=== PATIENT | female | born 1955 | race Caucasian/White ===

== ENCOUNTER 2017-11-10 14:03 | Emergency (ER) | payer MEDICARE, BC, OTHER ==
[~2017-11-10] VITALS: Ht 162.6 cm; Wt 60.8 kg
--- OUTSIDE RECORDS SUMMARY | ~2017-11-10 | XMS | Encounter Summary ---
Demographics + + + | Address | [address] | | | [address] | | | [place] [address] | + + + | Home Phone | | + + + | Preferred Language | Unknown | + + + | Marital Status | Single | + + + | Worship Affiliation | 1041 | + + + | Race | Unknown | + + + | Ethnic Group | Unknown | + + + Author + + + | Author | [facility] [employer] [facility] | + + + | Organization | [facility] [facility] | + + + | Address | Unknown | + + + | Phone | Unavailable | + + + Support + + + + + | Name | Relationship | Address | Phone | + + + + + | Precious La | ECON | [place] | | | | | [address] | | + + + + + Care Team Providers + +------+ + | Care Room Attendant Name | Role | Phone | + +------+ + PCP | Unavailable | + +------+ + Encounter Details +--------+ + + + + | Date | Type | Department | Care Team | Description | +--------+ + + + + | 08/21/ | Telephone | Juan | Celina Lang, | | | 2017 | | [facility] | OPERATIONS EXPERT | | | | | [address] | | | | | | [place] | | | | | | [address] | | | | | | [phone] | | | +--------+ + + + + Social History + +-------+ +--------+ + | Tobacco Use | Types | Packs/Day | Years | Date | | | | | Used | | + +-------+ +--------+ + | Former Smoker | | | 10 | Quit: 06/19/2012 | + +-------+ +--------+ + + +---+---+---+ | Smokeless Tobacco: | | | | | Never Used | | | | + +---+---+---+ + + +---------+ + | Alcohol Use | Drinks/We | oz/Week | Comments | | | ek | | | + + +---------+ + | No | | | | + + +---------+ + + + + | Sex Assigned at | Date Recorded | | | | + + + | Not on file | | + + + as of this encounter Plan of Treatment +--------+---------+ + + + | Date | Type | Specialty | Care Team | Description | +--------+---------+ + + + | 12/10/ | Office | Orthopedic Surgery | Cecelia Perez | | | 2017 | Visit | | [address] | | | | | | [place] | | | | | | [place] [address] | | | | | | [phone] | | | | | | | | +--------+---------+ + + + as of this encounter Visit Diagnoses Not on filein this encounter"
--- OUTSIDE RECORDS SUMMARY | ~2017-11-10 | XMS | Encounter Summary ---
Demographics + + + | Address | [address] | | | [address] | | | [place] [address] | + + + | Home Phone | | + + + | Preferred Language | Unknown | + + + | Marital Status | Single | + + + | Advent Affiliation | 1041 | + + + | Race | Unknown | + + + | Ethnic Group | Unknown | + + + Author + + + | Author | [facility] [facility] | + + + | Organization | [facility] | + + + | Address | Unknown | + + + | Phone | Unavailable | + + + Support + + + + + | Name | Relationship | Address | Phone | + + + + + | Precious La | ECON | [place] | | | | | [address] | | + + + + + Care Team Providers + +------+ + | Care Senior Software Architect Name | Role | Phone | + +------+ + PCP | Unavailable | + +------+ + Reason for Visit + + + | Reason | Comments | + + + | Follow-up | Increased lumbar pain. Pain level today is a 9/10. | + + + Consult and Treat (Routine) + +--------+ + + + + | Status | Reason | Specialty | Diagnoses / | Referred By | Referred To | | | | | Procedures | Contact | Contact | + +--------+ + + + + | Authorized | | Orthopedic | Diagnoses | Self, | Ang, | | | | Surgery | Lumbar | Referred | Cecelia | | | | | | Phone: | [address] | | | | | | [phone] | [address] | | | | | | Fax: | [address] | | | | | | [phone] | [place], [place] | | | | | | | [address] Phone: | | | | | | | [phone] | | | | | | | Fax: | | | | | | | [phone] | + +--------+ + + + + Encounter Details +--------+---------+ + + + | Date | Type | Department | Care Team | Description | +--------+---------+ + + + | 08/21/ | Office | [facility] | Cecelia Perez | Spinal stenosis of | | 2018 | Visit | [facility] | [address] | lumbar region with | | | | [address] | [place] | neurogenic | | | | [place], [place] | [place] [address] | claudication | | | | [address] | [phone] | (Primary Dx); DDD | | | | [phone] | | (degenerative disc | | | | | | disease), lumbar; | | | | | | Pain of lumbar | | | | | | spine; Pain of | | | | | | cervical spine; | | | | | | Cervical | | | | | | radiculopathy; Long | | | | | | term prescription | | | | | | opiate use | +--------+---------+ + + + Social History + +-------+ [...] + + + as of this encounter Last Filed Vital Signs + + + + | Vital Sign | Reading | Time Taken | + + + + | Blood Pressure | - | - | + + + + | Pulse | - | - | + + + + | Temperature | - | - | + + + + | Respiratory Rate | - | - | + + + + | Oxygen Saturation | - | - | + + + + | Inhaled Oxygen | - | - | | Concentration | | | + + + + | Weight | 60.8 kg (134 lb) | 08/21/2017 11:16 AM PST | + + + + | Height | 162.6 cm (5' 4") | 08/21/2017 11:16 AM PST | + + + + | Body Mass Index | 23 | 08/21/2017 11:16 AM PST | + + + + in this encounter Instructions Patient Instructions - Cecelia Perez ARNP - 08/21/2017 11:00 AM PST1. Take medicat ions as prescribed 2. Call for any changes to your symptoms 3. There will be no early refills provided on the medications provided to you today 4. Continue to have an active lifestyle, be reminded of your proper body mechanics and res trictions to avoid any exacerbation of symptoms. 5. Ice/heat therapy as indicated in this encounter Progress Notes Cecelia Perez ARNP - 08/21/2017 11:00 AM PSTFormatting of this note may be differen t from the original. Subjective: Chief Complaint: Lumbar pain Patient ID: Humera Benavidez is a 62 y.o. female who returns to the clinic today for her bim onthly management of her lumbar pain. Patient, by history, underwent an L4-5 fusion in 2012. Patient currently has a multilevel disc desiccation from L1-S1, all contributing to her cur rent symptoms. Patient reports an increase to her pain symptoms since her last clinic visit secondary to the colder weather. Patient continues to report of baseline pain level 8 9/10 on pain scale; describing her pain as a deep, aching, throbbing sensation at the lumbar reg ion and lower extremity; aggravated with changing position; improved with rest, use of opioi d medicine down to 6/10 on pain scale. Patient denies any bladder or bowel dysfunction assoc iated with her symptoms. [place] [facility] prescription monitoring website reviewed showing no anomalies t o prescribed medications. Review of Systems Constitutional: Negative for chills and fever. HENT: Negative for ear pain. Eyes: Negative for pain. Respiratory: Negative for choking, shortness of breath and wheezing. Cardiovascular: Negative for leg swelling. Gastrointestinal: Negative for abdominal pain. Endocrine: Negative for cold intolerance and heat intolerance. Genitourinary: Negative for dysuria, frequency and urgency. Musculoskeletal: Positive for myalgias. Skin: Negative for rash. Neurological: Negative for dizziness. Psychiatric/Behavioral: Positive for sleep disturbance (Insomnia). Negative for confusion. Social History Social History Marital status: Single Spouse name: N/A Number of children: N/A Years of education: N/A Occupational History Not on file. Social History Main Topics Smoking status: Former Smoker Years: 10.00 Quit date: 06/19/2012 Smokeless tobacco: Never Used Alcohol use No Drug use: Yes Frequency: 2.0 times per week Types: Marijuana Sexual activity: Not on file Other Topics Concern Not on file Social History Narrative No narrative on file Past Surgical History Procedure Laterality Date ABDOMINAL SURGERY APPENDECTOMY CEREBRAL ANEURYSM REPAIR 1992 CEREBRAL ANEURYSM REPAIR clips inplace MRI compatability unknown CEREBRAL ANEURYSM REPAIR Pt. states that Dr. 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" MRSA (methicillin resistant Staphylococcus aureus) Other chronic pain Radiculopathy 07/07/2012 Patient Active Problem List Diagnosis Pain of lumbar spine Radiculopathy Facial pain, atypical History of MRSA infection DDD (degenerative disc disease), lumbar Lumbar stenosis Left ankle injury Pain of cervical spine Current Outpatient Prescriptions: Cane (medical collector), Dispense and provide instruction as needed., Disp: 1 each, Rfl: 0 diazePAM (VALIUM) 5 MG tablet, Take 1 tablet by mouth nightly as needed for Anxiety or Muscle spasms., Disp: 30 tablet, Rfl: 1 oxyCODONE (ROXICODONE) 15 MG immediate release tablet, Take 1 tablet by mouth every 6 (six) hours as needed for Pain., Disp: 120 tablet, Rfl: 0 [START ON 09/18/2017] oxyCODONE (ROXICODONE) 15 MG immediate release tablet, Take 1 tab let by mouth every 6 (six) hours as needed for Pain., Disp: 120 tablet, Rfl: 0 pregabalin (LYRICA) 75 MG capsule, Take 1 capsule q.AM, and then 3 capsules at bedtime ., Disp: 120 capsule, Rfl: 5 Allergies Allergen Reactions Inderal [Propranolol Hcl] Hives Iodinated Diagnostic Agents Hives Contrast dye Medrol [Methylprednisolone] Shortness of Breath Sulfamethoxazole-Trimethoprim Other (See Comments) Augmentin [Amoxicillin-Pot Clavulanate] Diarrhea Codeine Nausea and Vomiting Objective: Ht 1.626 m (5' 4") | Wt 60.8 kg (134 lb) | BMI 23.00 kg/m Physical Exam General: Well nourished, well developed female Skin: WNL HEENT: NC/AT Respiratory: Normal excursion Cervical: Tenderness to palpation midline facets with mild limitation to range of motion; positive Spurling sign R>L; negative Leonel sign bilaterally Lumbar: Tenderness to palpation throughout midline facet, paraspinal muscle spasms, negati ve sitting straight leg raise bilaterally; forward biased gait Motor: 5/5 bilateral lower extremities; 5-/5 right scientific informatics analyst, tricep; 5/5 to the rest of the bi lateral upper extremities; negative Phalen and Tinel sign bilaterally Sensory: Intact all dermatomes to the bilateral lower extremities Assessment and Plan: 1. Spinal stenosis of lumbar region with neurogenic claudication 2. DDD (degenerative disc disease), lumbar 3. Pain of lumbar spine 4. Pain of cervical spine 5. Cervical radiculopathy 6. [facility] prescription opiate use Medications Placed This Encounter Medications oxyCODONE (ROXICODONE) 15 MG immediate release tablet Sig: Take 1 tablet by mouth every 6 (six) hours as needed for Pain. Dispense: 120 tablet Refill: 0 oxyCODONE (ROXICODONE) 15 MG immediate release tablet Sig: Take 1 tablet by mouth every 6 (six) hours as needed for Pain. Dispense: 120 tablet Refill: 0 TO BE FILLED NO EARLIER THAN SEPTEMBER 18, 2017 diazePAM (VALIUM) 5 MG tablet Sig: Take 1 tablet by mouth nightly as needed for Anxiety or Muscle spasms. Dispense: 30 tablet Refill: 1 Orders Placed This Encounter Procedures Pain management 10 GARIBAY ON OXYCODONE AND DIAZEPAM Standing Status: Future Standing Expiration Date: 08/21/2018 Humera Benavidez's current medication regimen has been moderately sufficient in keeping sergio ent's symptoms down to a more manageable level. Routine drug UA screen ordered today. Patient is provided a refill of her Oxycodone 15 mg every 6 hours as needed for pain; suppl emented with the Diazepam 5 mg at bedtime as needed for anxiety or muscle spasms. Two presc riptions of these medications were provided. First prescription may be filled today with a s econd prescription to be filled no earlier than September 18, 2017. Proper administration of the medications as well as potential side effects have been discussed. Emphasis has been mad e not to consume these 2 medications at the same time, must be at least 2 hours apart. Patient is encouraged to continue with her activity level reminding patient, however, of he r activity restrictions and proper body mechanics to avoid any exacerbation of symptoms. Ic e and/or heat therapy as indicated. Barring any changes, we will follow up with the patient in 2 months for a status update or sooner as indicated. All questions and concerns with regards to the patient's condition wer e discussed and answered and patient verbalized understanding and has agreed with treatment plan. LASHAY Simmons has created this entry using Flattr Voice Recognition software an [employer]. The entry has been reviewed and there may still exist sound alike word erro rs. in this encounter Plan of Treatment +--------+---------+ + + + | Date | Type | Specialty | Care Team | Description | +--------+---------+ + + + | 12/10/ | Office | Orthopedic Surgery | Cecelia Perez | | | 2017 | Visit | | [address] | | | | | | [address] | | | | | | [place] [address] | | | | | | [phone] | | | | | | | | +--------+---------+ + + + as of this encounter Results Pain management 10 GARIBAY (10/16/2017 10:58 AM) + + +-------- ---+ | Component | Value | Ref Ran ge | + + +-------- ---+ | PRESCRIBED DRUG 1 | SEE BELOWComment: NO MEDICATION LIST | | | | PROVIDEDCORRECTED ON 10/17 AT 0435: | | | | PREVIOUSLY REPORTED DNR DNR | | | |CORRECTED ON 10/17 AT 0435: PREVIOUSLY REPORTED DNR DNR | | | | | | + + +-------- ---+ | ALCOHOL SCREEN | NEGATIVEComment: POSITIVE CUTOFF 20 MG/DL | mg/dL | + + +-------- ---+ | AMP METHAMPHETAMINE | NEGATIVEComment: POSITIVE CUTOFF 500 NG/ML | ng/mL | | SCREEN | | | + + +-------- ---+ | AMPHETAMINE SCREEN | NEGATIVEComment: POSITIVE CUTOFF 500 NG/ML | ng/mL | | URINE | | | + + +-------- ---+ | CANNABINOIDS SCREEN | POSITIVEComment: POSITIVE CUTOFF 20 NG/ML | ng/mL | + + +-------- ---+ | CARBOXY THC GC MS | 53.4Comment: PRESCRIPTION MEDICATION NOT | ng/mL | | | PROVIDED FOR INTERPRETIVE COMMENT.PRESENCE | | | | OF CANNABINOIDS INDICATES CONSUMPTION OF | | | | MARIJUANA EITHERTHROUGH ILLICIT SOURCES | | | | LIKE POT, HASHISH, HASH OIL OR | | | | THROUGHPRESCRIPTION SOURCES LIKE MARINOL. | | | | THIS TEST CANNOT DISTINGUISHBETWEEN AN | | | | ILLICIT SOURCE OF MARIJUANA AND THE | | | | PRESCRIPTION MARINOL.POSITIVE CUTOFF 10 | | | | NG/MLTHIS TEST WAS DEVELOPED AND ITS | | | | PERFORMANCE CHARACTERISTICS DETERMINEDBY | | | | [facility]. THE U.S. FOOD AND DRUG ADMINISTRATION | | | | (FDA) HAS NOT APPROVEDOR CLEARED THIS | | | | TEST. HOWEVER, FDA APPROVAL OR CLEARANCE IS | | | | CURRENTLYNOT REQUIRED FOR CLINICAL USE OF | | | | THIS TEST.THE RESULTS ARE NOT INTENDED TO | | | | BE USED THE SOLE MEANS FOR | | | | CLINICALDIAGNOSIS OR PATIENT MANAGEMENT | | | | DECISIONS. [facility] IS AUTHORIZED UNDERCLINICAL | | | | LABORATORY IMPROVEMENT AMENDMENTS (CLIA) | | | | TO PERFORMHIGH-COMPLEXITY TESTING. | | + + +-------- ---+ | COCAINE SCREEN | NEGATIVEComment: POSITIVE CUTOFF 150 NG/ML | ng/mL | + + +-------- ---+ | MORPHINE LC MS MS | NEGATIVEComment: LOQ: 50 NG/ML | ng/mL | + + +-------- ---+ | OXYMORPHONE LC MS MS | >3000Comment: PRESCRIPTION MEDICATION NOT | ng/mL | | | PROVIDED FOR INTERPRETIVE COMMENT.PRESENCE | | | | OF OXYMORPHONE INDICATES THE CONSUMPTION OF | | | | NUMORPHAN, OPANA,OPANA ER, OR ANY | | | | MEDICATION CONTAINING OXYMORPHONE. | | | | OXYMORPHONE CANALSO BE PRESENT A | | | | METABOLITE OF OXYCODONE.LOQ: 50 NG/ML | | | | | | + + +-------- ---+ | HYDROMORPHONE LC MS | NEGATIVEComment: LOQ: 50 NG/ML | ng/mL | | MS | | | + + +-------- ---+ | NOR OXYCODONE LC MS | >3000Comment: PRESCRIPTION MEDICATION NOT | ng/mL | | MS | PROVIDED FOR INTERPRETIVE COMMENT.PRESENCE | | | | OF NOR-OXYCODONE INDICATES THE CONSUMPTION | | | | OF COMBUNOX,ENDOCET, PERCOCET, PERCODAN, | | | | OXYCONTIN, ROXICET, TYLOX OR ANYMEDICATION | | | | CONTAINING OXYCODONE.LOQ: 50 NG/MLTHIS TEST | | | | WAS DEVELOPED AND ITS PERFORMANCE | | | | CHARACTERISTICS DETERMINEDBY [facility]. THE U.S. | | | | FOOD AND DRUG ADMINISTRATION (FDA) HAS NOT | | | | APPROVEDOR CLEARED THIS TEST. HOWEVER, FDA | | | | APPROVAL OR CLEARANCE IS CURRENTLYNOT | | | | REQUIRED FOR CLINICAL USE OF THIS TEST.THE | | | | RESULTS ARE NOT INTENDED TO BE USED THE | | | | SOLE MEANS FOR CLINICALDIAGNOSIS OR PATIENT | | | | MANAGEMENT DECISIONS. [facility] IS AUTHORIZED | | | | UNDERCLINICAL LABORATORY IMPROVEMENT | | | | AMENDMENTS (CLIA) TO PERFORMHIGH-COMPLEXITY | | | | TESTING. | | + + +-------- ---+ | NOR HYDROCODONE LC | NEGATIVEComment: LOQ: 50 NG/ML | ng/mL | | MS | | | + + +-------- ---+ | OXYCODONE LC MS MS | >3000Comment: PRESCRIPTION MEDICATION NOT | ng/mL | | | PROVIDED FOR INTERPRETIVE COMMENT.PRESENCE | | | | OF OXYCODONE INDICATES THE CONSUMPTION OF | | | | COMBUNOX, ENDOCET,PERCOCET, PERCODAN, | | | | OXYCONTIN, ROXICET, TYLOX OR ANY | | | | MEDICATIONCONTAINING OXYCODONE.LOQ: 50 | | | | NG/ML | | | | | | + + +-------- ---+ | CODEINE LC MS MS | NEGATIVEComment: LOQ: 50 NG/ML | ng/mL | + + +-------- ---+ | HEROIN METLAB LC MS | NEGATIVEComment: LOQ: 10 NG/ML | ng/mL | | MS | | | + + +-------- ---+ | HYDRCODONE LC MS MS | NEGATIVEComment: LOQ: 50 NG/ML | ng/mL | + + +-------- ---+ | PHENCYCLIDINE SCR | NEGATIVEComment: POSITIVE CUTOFF 25 NG/ML | ng/mL | + + +-------- ---+ | PROPOXYPHENE SCRreen | NEGATIVEComment: POSITIVE CUTOFF 300 NG/ML | ng/mL | + + +-------- ---+ | BARBITURATES SCR | NEGATIVEComment: POSITIVE CUTOFF 200 NG/ML | ng/mL | + + +-------- ---+ | BENZODIAZEPINES | POSITIVEComment: POSITIVE CUTOFF 200 NG/ML | ng/mL | + + +-------- ---+ | OXAZEPAM GC MS | 47.7Comment: PRESCRIPTION MEDICATION NOT | ng/mL | | | PROVIDED FOR INTERPRETIVE COMMENT.PRESENCE | | | | OF OXAZEPAM A PARENT COMPOUND OR | | | | METABOLITE INDICATES THECONSUMPTION OF ONE | | | | OF THE FOLLOWING: CHLORDIAZEPOXIDE, | | | | CLORAZEPATE,DIAZEPAM, OXAZEPAM, PRAZEPAM, | | | | TEMAZEPAM, LIBRIUM, TRANXENE, | | | | GENXENE,VALIUM, VALRELEASE, SERAX, CENTRAX, | | | | VERSTRAN, RESTORIL, NORMISON,NOBRIUM, | | | | MEDAZEPAM, METHYLOXAZEPAM OR ANY MEDICATION | | | | CONTAININGOXAZEPAM.POSITIVE CUTOFF 25 | | | | NG/MLANALYZED BY LCMSMS | | + + +-------- ---+ | TEMAZEPAM GC MS | 233.7Comment: PRESCRIPTION MEDICATION NOT | ng/mL | | | PROVIDED FOR INTERPRETIVE COMMENT.PRESENCE | | | | OF TEMAZEPAM INDICATES THE CONSUMPTION OF | | | | RESTORIL, NORMISON,METHYLOXAZEPAM, VALIUM, | | | | VALRELEASE, DIASTAT, DIAZEMULS, STESOLID, | | | | ORANY OTHER MEDICATION CONTAINING | | | | TEMAZEPAM. OXAZEPAM CAN ALSO BEPRESENT A | | | | METABOLITE OF TEMAZEPAM.POSITIVE CUTOFF 25 | | | | NG/ML | | + + +-------- ---+ | LORAZEPAM GC MS | NEGATIVEComment: POSITIVE CUTOFF 25 NG/ML | ng/mL | + + +-------- ---+ | ALPHA OH ALPRAZOLAM | NEGATIVEComment: POSITIVE CUTOFF 25 NG/ML | ng/mL | + + +-------- ---+ | METHADONE SCREEN | NEGATIVEComment: POSITIVE CUTOFF 100 NG/ML | ng/mL | + + +-------- ---+ | CLONAZEPAM | NEGATIVEComment: POSITIVE CUTOFF 10 NG/ML | ng/mL | + + +-------- ---+ | 7AMINOCLONAZEPAM | NEGATIVEComment: POSITIVE CUTOFF 10 NG/ML | ng/mL | | LCMSMS | | | + + +-------- ---+ | FLUNITRAZEPAM | NEGATIVEComment: POSITIVE CUTOFF 10 NG/ML | ng/mL | + + +-------- ---+ | 7 AMINOFLUNITRAZEPAM | NEGATIVEComment: POSITIVE CUTOFF 10 NG/ML | ng/mL | + + +-------- ---+ | DIAZEPAM | NEGATIVEComment: POSITIVE CUTOFF 10 NG/ML | ng/mL | + + +-------- ---+ | NORDIAZEPAM | 162.2Comment: PRESCRIPTION MEDICATION NOT | ng/mL | | | PROVIDED FOR INTERPRETIVE COMMENT.PRESENCE | | | | OF NORDIAZEPAM INDICATES THE CONSUMPTION OF | | | | LIBRIUM,CHLORDIAZEPOXIDE, GENXENE, | | | | TRANXENE, CLORAZEPATE, VALIUM, | | | | VALRELEASE,DIASTAT, DIAZEMULS, STESOLID, | | | | PAXIPAM, HALAZEPAM, PRAZEPAM, | | | | NOBRIUM,MEDAZEPAM, OR ANY MEDICATION | | | | CONTAINING NORDIAZEPAM.POSITIVE CUTOFF 25 | | | | NG/MLANALYZED BY LCMSMS | | + + +-------- ---+ | ALPRAZOLAM | NEGATIVEComment: POSITIVE CUTOFF 10 NG/ML | ng/mL | + + +-------- ---+ | FLURAZEPAM | NEGATIVEComment: POSITIVE CUTOFF 10 NG/ML | ng/mL | + + +-------- ---+ | MIDAZOLAM | NEGATIVEComment: POSITIVE CUTOFF 25 NG/ML | ng/mL | + + +-------- ---+ | ALPHA | NEGATIVEComment: POSITIVE CUTOFF 25 NG/ML | ng/mL | | HYDROXYTRIAZOLAM | | | + + +-------- ---+ | OXIDANTS | NEGATIVEComment: POSITIVE CUTOFF 200 UG/ML | ug/mL | + + +-------- ---+ | PH URINE | 5.6 | | + + +-------- ---+ | CREATININE, URINE | 115 | mg/dL | + + +-------- ---+ + + + | Specimen | Performing Laboratory | + + + | Urine, Unspecified | [address] [address] | | Source | | + + + in this encounter Visit Diagnoses + + | Diagnosis | + + | Spinal stenosis of lumbar region with neurogenic claudication - Primary | + + | Spinal stenosis, lumbar region, with neurogenic claudication | + + | DDD (degenerative disc disease), lumbar | + + | Pain of lumbar spine | + + | Lumbago | + + | Pain of cervical spine | + + | Cervicalgia | + + | Cervical radiculopathy | + + | Brachial neuritis or radiculitis nos | + + | extermination supervisor prescription opiate use | + +
--- OUTSIDE RECORDS SUMMARY | ~2017-11-10 | XMS | Encounter Summary ---
Demographics + + + | Address | [address] | | | [address] | | | [place] [address] | + + + | Home Phone | | + + + | Preferred Language | Unknown | + + + | Marital Status | Single | + + + | Tenriism Affiliation | 1041 | + + + | Race | Unknown | + + + | Ethnic Group | Unknown | + + + Author + + + | Author | [facility] | + + + | Organization | [facility] | + + + | Address | Unknown | + + + | Phone | Unavailable | + + + Support + + + + + | Name | Relationship | Address | Phone | + + + + + | Precious La | ECON | [place] | | | | | [address] | | + + + + + Care Team Providers + +------+ + | Care Dashboard Developer Name | Role | Phone | + +------+ + PCP | Unavailable | + +------+ + Encounter Details +--------+ + + + + | Date | Type | Department | Care Team | Description | +--------+ + + + + | 09/18/ | Telephone | Juan | Kristen Vega MA | | | 2018 | | [facility] [place] | | | | | | [address] | | | | | | [place] | | | | | | [address] | | | | | | [phone] | | | +--------+ + + + [...] 12/10/ | Office | Orthopedic Surgery | Cecleia Perez | | | 2017 | Visit | | [address] | | | | | | [address] | | | | | | [place] [address] | | | | | | [phone] | | | | | | | | +--------+---------+ + + + as of this encounter Visit Diagnoses Not on filein this encounter"
--- OUTSIDE RECORDS SUMMARY | ~2017-11-10 | XMS | Encounter Summary ---
Demographics + + + | Address | [address] | | | [address] | | | [place] [address] | + + + | Home Phone | | + + + | Preferred Language | Unknown | + + + | Marital Status | Single | + + + | Christian Affiliation | 1041 | + + + | Race | Unknown | + + + | Ethnic Group | Unknown | + + + Author + + + | Author | [facility] | + + + | Organization | [facility] | + + + | Address | Unknown | + + + | Phone | Unavailable | + + + Support + + + + + | Name | Relationship | Address | Phone | + + + + + | Precious La | ECON | [place] | | | | | [address] | | + + + + + Care Team Providers + +------+ + | Care Lan Analyst Name | Role | Phone | + +------+ + PCP | Unavailable | + +------+ + Encounter Details +--------+ + + + + | Date | Type | Department | Care Team | Description | +--------+ + + + + | 10/16/ | Lab | [facility] | Tomasz Justice, | terminal gauger | | 2018 | Requisition | [address] | Special Procedure Technologist | prescription opiate | | | | [place] [address] | | use | | | | [phone] | | | +--------+ + + + [...] Surgery | Cecelia Perez | | | 2018 | Visit | | [address] | | | | | | [address] | | | | | | [place] [address] | | | | | | [phone] | | | | | | | | +--------+---------+ + + + as of this encounter Results Pain management 10 LANI (10/16/2017 10:58 AM) + + +-------- ---+ [...] PERFORMANCE CHARACTERISTICS DETERMINEDBY | | | | [facility]. THE [place] [employer] AND [employer]MIN[employer] | [...] PATIENT MANAGEMENT | | | | DECISIONS. [facility] IS AUTHORIZED UNDERCLINICAL | | | [...] PERFORMANCE | | | | CHARACTERISTICS DETERMINEDBY [facility]. THE [place] | | | | [...] PATIENT | | | | MANAGEMENT DECISIONS. [facility] IS AUTHORIZED | | | | [...] + + + | Urine, Unspecified | [facility] [address] [place] [address] | | Source | | + + + in this encounter Visit Diagnoses + + | Diagnosis | + + | senior living prescription opiate use | + +"
--- OUTSIDE RECORDS SUMMARY | ~2017-11-10 | XMS | Encounter Summary ---
Demographics + + + | Address | [address] | | | [address] | | | [place] [address] | + + + | Home Phone | | + + + | Preferred Language | Unknown | + + + | Marital Status | Single | + + + | Cheondoism Affiliation | 1041 | + + + | Race | Unknown | + + + | Ethnic Group | Unknown | + + + Author + + + | Author | [facility] | + + + | Organization | [facility] | + + + | Address | Unknown | + + + | Phone | Unavailable | + + + Support + + + + + | Name | Relationship | Address | Phone | + + + + + | Precious La | ECON | [place] | | | | | [address] | | + + + + + Care Team Providers + +------+ + | Care Bun Panner Name | Role | Phone | + +------+ + PCP | Unavailable | + +------+ + Encounter Details +--------+ + + + + | Date | Type | Department | Care Team | Description | +--------+ + + + + | 09/19/ | Telephone | Juan | Kristen Vega MA | | | 2018 | | [facility] | | | | | | [address] | | | | | | [place] | | | | | | [address] | | | | | | [phone] | | | +--------+ + + + [...] | | | | | [place] [address] | | | | | | [phone] | | | | | | | | +--------+---------+ + + + as of this encounter Visit Diagnoses Not on filein this encounter"
--- OUTSIDE RECORDS SUMMARY | ~2017-11-10 | XMS | Encounter Summary ---
Demographics + + + | Address | [address] | | | [address] | | | [place] [address] | + + + | Home Phone | | + + + | Preferred Language | Unknown | + + + | Marital Status | Single | + + + | Druze Affiliation | 1041 | + + + | Race | Unknown | + + + | Ethnic Group | Unknown | + + + Author + + + | Author | [facility] | + + + | Organization | [facility] | + + + | Address | Unknown | + + + | Phone | Unavailable | + + + Support + + + + + | Name | Relationship | Address | Phone | + + + + + | Precious La | ECON | [place] | | | | | [address] | | + + + + + Care Team Providers + +------+ + | Care Corral Boss Name | Role | Phone | + +------+ + PCP | Unavailable | + +------+ + Encounter Details +--------+ + + + + | Date | Type | Department | Care Team | Description | +--------+ + + + + | 10/16/ | Lab | [facility] | 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 [facility] IS AUTHORIZED UNDERCLINICAL | | | [...] PERFORMANCE | | | | CHARACTERISTICS DETERMINEDBY [facility]. THE [place] | | | | [...] PATIENT | | | | MANAGEMENT DECISIONS. [facility] IS AUTHORIZED | | | | [...] + + + | Urine, Unspecified | [facility] [address] [place] [address] | | Source | | + + + in this encounter Visit Diagnoses + + | Diagnosis | + + | [facility] prescription opiate use | + +"
--- OUTSIDE RECORDS SUMMARY | ~2017-11-10 | XMS | Encounter Summary ---
Demographics + + + | Address | [address] | | | [address] | | | [place] [address] | + + + | Home Phone | | + + + | Preferred Language | Unknown | + + + | Marital Status | Single | + + + | Episcopal Affiliation | 1041 | + + + | Race | Unknown | + + + | Ethnic Group | Unknown | + + + Author + + + | Author | [facility] | + + + | Organization | [facility] | + + + | Address | Unknown | + + + | Phone | Unavailable | + + + Support + + + + + | Name | Relationship | Address | Phone | + + + + + | Precious La | ECON | [place] | | | | | [address] | | + + + + + Care Team Providers + +------+ + | Care Operations Research Engineer Name | Role | Phone | + +------+ + PCP | Unavailable | + +------+ + Encounter Details +--------+ + + + + | Date | Type | Department | Care Team | Description | +--------+ + + + + | 09/29/ | Telephone | Juan | Celina Lang, | | | 2018 | | [facility] | SENIOR CREDIT ANALYST | | | | | [address] | | | | | | [place] | | | | | | [address] | | | | | | [phone] | | | +--------+ + + + [...] | | | | | [place] [address] | | | | | | [phone] | | | | | | | | +--------+---------+ + + + as of this encounter Visit Diagnoses Not on filein this encounter"
--- OUTSIDE RECORDS SUMMARY | ~2017-11-10 | XMS | Encounter Summary ---
Demographics + + + | Address | [address] | | | [address] | | | [place] [address] | + + + | Home Phone | | + + + | Preferred Language | Unknown | + + + | Marital Status | Single | + + + | Restoration Affiliation | 1041 | + + + | Race | Unknown | + + + | Ethnic Group | Unknown | + + + Author + + + | Author | [facility] | + + + | Organization | [facility] | + + + | Address | Unknown | + + + | Phone | Unavailable | + + + Support + + + + + | Name | Relationship | Address | Phone | + + + + + | Precious La | ECON | [place] | | | | | [address] | | + + + + + Care Team Providers + +------+ + | Care Production Foreman Name | Role | Phone | + +------+ + PCP | Unavailable | + +------+ + Reason for Visit +--------+ + | Reason | Comments | +--------+ + | Other | SILVERSCRIPT RESPONSE FORM | +--------+ + Encounter Details +--------+ + + + + | Date | Type | Department | Care Team | Description | +--------+ + + + + | 02// | Documentati | Juan | VegaKristen IVETTE | Other (SILVERSCRIPT | | 2018 | on Only | [facility] | | RESPONSE FORM) | | | | [address] | | | | | | [place] | | | | | | [address] | | | | | | [phone] | | | +--------+ + + + [...] [address] | | | | | | [place] [address] | | | | | | [phone] | | | | | | | | +--------+---------+ + + + as of this encounter Visit Diagnoses Not on filein this encounter"
--- OUTSIDE RECORDS SUMMARY | ~2017-11-10 | XMS | Encounter Summary ---
Demographics + + + | Address | [address] | | | [address] | | | [place] [address] | + + + | Home Phone | | + + + | Preferred Language | Unknown | + + + | Marital Status | Single | + + + | Pentecostal Affiliation | 1041 | + + + | Race | Unknown | + + + | Ethnic Group | Unknown | + + + Author + + + | Author | [facility] [employer] [facility] | + + + | Organization | [facility] [employer] [facility] | + + + | Address | Unknown | + + + | Phone | Unavailable | + + + Support + + + + + | Name | Relationship | Address | Phone | + + + + + | Precious La | ECON | [place] | | | | | [address] | | + + + + + Care Team Providers + +------+ + | Care Grill Prep Cook Name | Role | Phone | + [...] [address] | | | | | | [phone] | [address] | | | | | | Fax: | [address] | | | | | | [phone] | [place], [place] | | | | | | | [address] Phone: | | | | | | | [phone] | | | | | | | Fax: | | | | | | | [phone] | + +--------+ + + + + Encounter Details +--------+---------+ + + + | Date | Type | Department | Care Team | Description | +--------+---------+ + + + | 08/21/ | Office | [facility] | Cecelia Perez | Spinal stenosis of | | 2018 | Visit | [facility] | [address] | lumbar region with | | | | [address] | [place] | neurogenic | | | | [place], [place] | [place] [address] | claudication | | | | [address] | [phone] | (Primary Dx); DDD | | | | [phone] | | (degenerative disc | | | [...] bowel dysfunction assoc iated with her symptoms. [place] [facility] prescription monitoring website reviewed showing no anomalies [...] Pt. states that Dr. Alfonzo Mares at [facility] instructed pt not to have an MRI SECTION HYSTERECTOMY LUMBAR FUSION N/A 08/21/2012 Procedure: LUMBAR - XLIF - FUSION; Surgeon: Eric Marroquin MD; Location: [facility]; rvice: Orthopedics; Laterality: N/A; L [...] cervical spine Current Outpatient Prescriptions: Cane (medical technicians), Dispense and provide instruction as needed., Disp: [...] Motor: 5/5 bilateral lower extremities; 5-/5 right patient care secretary, tricep; 5/5 to the rest of the bi lateral upper extremities; negative Phalen and Tinel sign bilaterally Sensory: Intact all dermatomes to the bilateral lower extremities Assessment and Plan: 1. Spinal stenosis of lumbar region with neurogenic claudication 2. DDD (degenerative disc disease), lumbar 3. Pain of lumbar spine 4. Pain of cervical spine 5. Cervical radiculopathy 6. [facility] prescription opiate use Medications Placed This Encounter [...] LASHAY Simmons has created this entry using [employer] Voice Recognition software an [employer]. The entry has been reviewed and there [...] [address] | | | | | | [place] [address] | | | | | | [phone] | | | | | | | [...] PERFORMANCE CHARACTERISTICS DETERMINEDBY | | | | [facility]. THE [place] FOOD AND DRUG ADMINISTRATION | [...] PATIENT MANAGEMENT | | | | DECISIONS. [facility] IS AUTHORIZED UNDERCLINICAL | | | | [...] PERFORMANCE | | | | CHARACTERISTICS DETERMINEDBY [facility]. THE [place] | | | | FOOD [...] PATIENT | | | | MANAGEMENT DECISIONS. 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
--- OUTSIDE RECORDS SUMMARY | ~2017-11-10 | XMS | Clinical Summary ---
Demographics + + + | Address | [address] | | | [address] | | | [place] [address] | + + + | Home Phone | | + + + | Preferred Language | Unknown | + + + | Marital Status | Single | + + + | Confucianism Affiliation | 1041 | + + + | Race | Unknown | + + + | Ethnic Group | Unknown | + + + Author + + + | Author | [facility] [facility] | + + + | Organization | [facility] [employer] [facility] [facility] | + + + | Address | Unknown | + + + | Phone | Unavailable | + + + Support + + + + + | Name | Relationship | Address | Phone | + + + + + | Precious La | ECON | [place] | | | | | [address] | | + + + + + Care Team Providers + +------+ + | Care Rn L And D Name | Role | Phone | + +------+ + PP | Unavailable | + +------+ + Allergies + + + + + + | Active Allergy | Reactions | Severity | Noted | Comments | | | | | Date | | + + + + + + | Amoxicillin-Pot | Diarrhea | Low | 07/07/20 | | | Clavulanate | | | 12 | | + + + + + + | Codeine | Nausea and Vomiting | Low | 12/17/19 | | | | | | 17 | | + + + + + + | Propranolol Hcl | Hives | High | 07/02/20 | | | | | | 12 | | + + + + + + | Iodinated Diagnostic | Hives | High | 08/21/19 | Contrast dye | | Agents | | | 18 | | + + + + + + | Methylprednisolone | Shortness of Breath | High | 05/28/20 | | | | | | 16 | | + + + + + + | Sulfamethoxazole-Tri | Other (See Comments) | Medium | 12/17/19 | | | methoprim | | | 17 | | + + + + + + Current Medications + + + +---------+------+------+-------+ | Prescription | Sig. | Disp. | Refills | Star | End | Statu | | | | | | t | Date | s | | | | | | Date | | | + + + +---------+------+------+-------+ | Cane (medical | Dispense and provide | 1 each | 0 | 05/2 | | Activ | | device) | instruction as | | | 2/20 | | e | | | needed. | | | 17 | | | + + + +---------+------+------+-------+ | pregabalin | Take 1 capsule q.AM, | 120 | 5 | 07/1 | | Activ | | (LYRICA) 75 MG | and then 3 capsules | capsule | | 3/20 | | e | | capsuleIndications: | at bedtime. | | | 17 | | | | Lumbar stenosis, DDD | | | | | | | | (degenerative disc | | | | | | | | disease), lumbar, | | | | | | | | Lumbar spine pain | | | | | | | + + + +---------+------+------+-------+ | oxyCODONE | Take 1 tablet by | 120 | 0 | 03/2 | | Activ | | (ROXICODONE) 15 MG | mouth every 6 (six) | tablet | | 2/20 | | e | | immediate release | hours as needed for | | | 18 | | | | tabletIndications: | Pain. | | | | | | | Spinal stenosis of | | | | | | | | lumbar region with | | | | | | | | neurogenic | | | | | | | | claudication, | | | | | | | | Degeneration of | | | | | | | | intervertebral disc | | | | | | | | of lumbar region, | | | | | | | | Pain of lumbar | | | | | | | | spine, Pain of | | | | | | | | cervical spine, | | | | | | | | Cervical | | | | | | | | radiculopathy | | | | | | | + + + +---------+------+------+-------+ | oxyCODONE | Take 1 tablet by | 120 | 0 | 04/1 | | Activ | | (ROXICODONE) 15 MG | mouth every 6 (six) | tablet | | 9/20 | | e | | immediate release | hours as needed for | | | 18 | | | | tabletIndications: | Pain. | | | | | | | Pain of cervical | | | | | | | | spine, Cervical | | | | | | | | radiculopathy, | | | | | | | | Spinal stenosis of | | | | | | | | lumbar region with | | | | | | | | neurogenic | | | | | | | | claudication, | | | | | | | | Degeneration of | | | | | | | | intervertebral disc | | | | | | | | of lumbar region, | | | | | | | | Pain of lumbar spine | | | | | | | + + + +---------+------+------+-------+ | oxyCODONE | Take 1 tablet by | 120 | 0 | / | 03/ | Disco | | (ROXICODONE) 15 MG | mouth every 6 (six) | tablet | | /20 | 2/20 | ntinu | | immediate release | hours as needed for | | | 18 | 18 | ed | | tabletIndications: | Pain. | | | | | | | Spinal stenosis of | | | | | | | | lumbar region with | | | | | | | | neurogenic | | | | | | | | claudication, | | | | | | | | Degeneration of | | | | | | | | intervertebral disc | | | | | | | | of lumbar region, | | | | | | | | Pain of lumbar | | | | | | | | spine, Pain of | | | | | | | | cervical spine, | | | | | | | | Cervical | | | | | | | | radiculopathy | | | | | | | + + + +---------+------+------+-------+ | oxyCODONE | Take 1 tablet by | 120 | 0 | / | 09/26 | Disco | | (ROXICODONE) 15 MG | mouth every 6 (six) | tablet | | 2/ | 2/20 | ntinu | | immediate release | hours as needed for | | | 18 | 18 | ed | | tabletIndications: | Pain. | | | | | | | Pain of cervical | | | | | | | | spine, Cervical | | | | | | | | radiculopathy, | | | | | | | | Spinal stenosis of | | | | | | | | lumbar region with | | | | | | | | neurogenic | | | | | | | | claudication, | | | | | | | | Degeneration of | | | | | | | | intervertebral disc | | | | | | | | of lumbar region, | | | | | | | | Pain of lumbar spine | | | | | | | + + + +---------+------+------+-------+ | diazePAM (VALIUM) | Take 1 tablet by | 30 | 1 | 01/ | 09/26 | Disco | | 5 MG | mouth nightly as | tablet | | / | 2/20 | ntinu | | tabletIndications: | needed for Anxiety | | | 18 | 18 | ed | | Spinal stenosis of | or Muscle spasms. | | | | | | | lumbar region with | | | | | | | | neurogenic | | | | | | | | claudication, | | | | | | | | Degeneration of | | | | | | | | intervertebral disc | | | | | | | | of lumbar region, | | | | | | | | Pain of lumbar | | | | | | | | spine, Pain of | | | | | | | | cervical spine, | | | | | | | | Cervical | | | | | | | | radiculopathy | | | | | | | + + + +---------+------+------+-------+ + + +-------+ +------+------+-------+ | Hospital, Clinic, or | Ordered | Route | Frequency | Star | End | Statu | | Other Facility | Dose | | | t | Date | s | | Administered | | | | Date | | | | Medication | | | | | | | + + +-------+ +------+------+-------+ | ketorolac | 60 mg | IM | Once | / | / | Ended | | (TORADOL) injection | | | | 09/16 | 2/20 | | | 60 mgIndications: | | | | 18 | 18 | | | Spinal stenosis of | | | | | | | | lumbar region with | | | | | | | | neurogenic | | | | | | | | claudication, | | | | | | | | Degeneration of | | | | | | | | intervertebral disc | | | | | | | | of lumbar region, | | | | | | | | Pain of lumbar | | | | | | | | spine, Pain of | | | | | | | | cervical spine, | | | | | | | | Cervical | | | | | | | | radiculopathy | | | | | | | + + +-------+ +------+------+-------+ Active Problems + + + | Problem | Noted Date | + + + | Pain of cervical spine | 06/26/2017 | + + + | Left ankle injury | 01/28/2017 | + + + | DDD (degenerative disc disease), lumbar | 11/15/2016 | + + + | Lumbar stenosis | 11/15/2016 | + + + | Pain of lumbar spine | 07/07/2012 | + + + | Radiculopathy | 07/07/2012 | + + + | Facial pain, atypical | 07/07/2012 | + + + | History of MRSA infection | 07/07/2012 | + + + Encounters +--------+ + + + + | Date | Type | Specialty | Care Team | Description | +--------+ + + + + | 10/16/ | Office | | Cecelia Perez | Spinal stenosis of | | 2018 | Visit | | LASHAY Marte | lumbar region with | | | | | | neurogenic | | | | | | claudication; DDD | | | | | | (degenerative disc | | | | | | disease), lumbar; | | | | | | Pain of lumbar | | | | | | spine; Pain of | | | | | | cervical spine; | | | | | | Cervical | | | | | | radiculopathy | +--------+ + + + + | 10/16/ | Lab | | Tomasz Justice, | prison | | 2017 | Requisition | | Sexologist | prescription opiate | | | | | | use | +--------+ + + + + | 09/29/ | Telephone | | Celina Lang, | | | 2017 | | | ARCHITECTURAL PRACTICE MANAGER | | +--------+ + + + + | 09/19/ | Telephone | | Kristen Vega MA | | 2017 | | | | | +--------+ + + + + | 09/18/ | Telephone | | Kristen Vega MA | | | 2017 | | | | | +--------+ + + + + | 09/05/ | Telephone | | Modesta Rodriguez | | | 2017 | | | | | +--------+ + + + + | 08/28/ | Documentati | | Kristen Vega MA | Other (SILVERSCRIPT | | 2017 | on Only | | | RESPONSE FORM) | +--------+ + + + + | 08/21/ | Office | | Cecelia Perez | Spinal stenosis of | | 2018 | Visit | | LASHAY Marte | lumbar region with | | | | | | neurogenic | | | | | | claudication | | | | | | (Primary Dx); DDD | | | | | | (degenerative disc | | | [...] | | | | opiate use | +--------+ + + + + | 08/21/ | Telephone | | Celina Lang, | | | 2017 | | | ARCHITECTURAL PRACTICE MANAGER | | +--------+ + + + + from Last 3 Months Immunizations + + + + | Name | Dates Previously Given | Next Due | + + + + | Influenza Split | 08/22/2012 | | + + + + | Pneumococcal | 08/22/2012 | | | Polysaccharide | | | | 23-valent | | | + + + + Social History + [...] on file | | + + + Last Filed Vital Signs + + + + | Vital Sign | Reading | Time Taken | + + + + | Blood Pressure | 136/80 | 10/16/2017 11:11 AM PDT | + + + + | Pulse | 70 | 10/16/2017 11:11 AM PDT | + + + + | Temperature | 36.6 C (97.8 F) | 05/28/2016 8:02 AM PDT | + + + + | Respiratory Rate | 18 | 10/16/2017 11:11 AM PDT | + + + + | Oxygen Saturation | 98% | 10/16/2017 11:11 AM PDT | + + + + | Inhaled Oxygen | - | - | | Concentration | | | + + + + | Weight | 60.8 kg (134 lb) | 10/16/2017 11:11 AM PDT | + + + + | Height | 162.6 cm (5' 4") | 10/16/2017 11:11 AM PDT | + + + + | Body Mass Index | 23 | 10/16/2017 11:11 AM PDT | + + + + Plan of Treatment +--------+---------+ + + + | Date | Type | Specialty | Care Team | Description | +--------+---------+ + + + | 12/10/ | Office | | Cecelia Perez | | | 2018 | Visit | | [address] Marte [address] | | | | | [address] | | | | | | [place] [address] | | | | | | [phone] | | | | | | | | +--------+---------+ + + + + + + + + | Health Maintenance | Due Date | Last Done | Comments | + + + + + | Vaccine: | | | | | Dtap/Tdap/Td (1 - | 3 | | | | Tdap) | | | | + + + + + | Cervical Cancer | | | | | Screening (Pap) | 5 | | | + + + + + | Breast Cancer | | | | | Screening | 4 | | | | (Mammogram) | | | | + + + + + | Colon Cancer | | | | | Screening | 4 | | | | (Colonoscopy) | | | | + + + + + | Vaccine: Zoster (#1) | | | | | | 4 | | | + + + + + | Vaccine: Influenza | | 08/22/2012 | | | (Season Ended) | 8 | | | + + + + + Implants + +------+--------+ +--------+--------+--------+ | Implanted | Type | Area | Manufacture | Device | Expira | Model | | | | | r | | tion | / | | | | | | Identi | Date | Serial | | | | | | fier | | / Lot | + +------+--------+ +--------+--------+--------+ | Allograft Osteocell 10cc | | N/A: | | | | [id number] | | [id number] - | | Spine | | | | 0 | | [id number]: Qty: 1 | | Lumbar | | | | /[id number] | | on 08/21/2012 by Lopez, | | | | | | [id number] | | MD Eric | | | | | | / | + +------+--------+ +--------+--------+--------+ | Graft Sponge Kit Bone Infuse | | N/A: | | | 01/25/ | [id number] | | Small 28ml - | | Spine | | | 2014 | 0 | | [id number]: Qty: 1 on | | Lumbar | | | | /[id number] | | 08/21/2012 by Eric Marroquin, | | | | | | 00 | | | | | | | | /[id number] | | | | | | | | [id number] | + +------+--------+ +--------+--------+--------+ | Allograft Putty Freeze Dried | | | | | 05/11/ | [id number] | | Demineralized Bone Matrix Dbx | | | | | 2013 | | | 10ml - | | | | | | /[id number] | | [id number]: | | | | | | [id number] | | Qty: 1 on 08/21/2012 | | | | | | [id number] | | | | | | | | 8 / | + +------+--------+ +--------+--------+--------+ | Cage Coroent [id number] Xl | | N/A: | | | | [id number] | | Wide 10 Degree - | | Spine | | | | 0 | | [id number]: Qty: 1 on | | Lumbar | | | | /[id number] | | 08/21/2012 by Eric Marroquin, | | | | | | 50 / | | | | | | | | | + +------+--------+ +--------+--------+--------+ | Screw Shank Can.7.5x45mm | | N/A: | | | | [id number] | | [id number] - [id number]: | | Spine | | | | 5 | | Qty: 4 on 08/21/2012 by Lopez, | | Lumbar | | | | /[id number] | | MD Eric | | | | | | 45 / | + +------+--------+ +--------+--------+--------+ | Screw Locking For 6.25mm David | | N/A: | | | | [id number] | | [id number] - [id number]: | | Spine | | | | 1 | | Qty: 4 on 08/21/2012 by Lopez, | | Lumbar | | | | /[id number] | | MD Eric | | | | | | 01 / | + +------+--------+ +--------+--------+--------+ | Screw Tulip For 6.25mm David | | N/A: | | | | [id number] | | [id number] - [id number]: | | Spine | | | | 2 | | Qty: 4 on 08/21/2012 by Lopez | | Lumbar | | | | /[id number] | | MD Eric | | | | | | 02 / | + +------+--------+ +--------+--------+--------+ | David Spherx Dual Ball Ti Dbr | | N/A: | | | | [id number] | | Ii 225mm - [id number]: | | Spine | | | | 5 | | Qty: 2 on 08/21/2012 by | | Lumbar | | | | /[id number] | | Eric Marroquin MD | | | | | | 25 / | + +------+--------+ +--------+--------+--------+ Results Pain management 10 GARIBAY (10/16/2017 10:58 [...] PATIENT MANAGEMENT | | | | DECISIONS. [facility] IS AUTHORIZED UNDERCLINICAL | | | | [...] PERFORMANCE | | | | CHARACTERISTICS DETERMINEDBY PAML. THE [place] | | | | FOOD [...] PATIENT | | | | MANAGEMENT DECISIONS. [facility] IS AUTHORIZED | | | | UNDERCLINICAL [...] + + + | Urine, Unspecified | [facility] [address] [place] [address] | | Source | | + + + from Last 3 Months Insurance + +--------+ +------+-------+ + | Payer | Benefi | Subscriber | Type | Phone | Address | | | t Plan | ID | | | | | | / | | | | | | | Group | | | | | + +--------+ +------+-------+ + | MEDICARE | MEDICA | xxxxxxxxxx | | | [address] | | | RE | | | | [place] [address] | | | IP-OP | | | | | + +--------+ +------+-------+ + | PREMERA | PREMER | xxxxxxxxxxx | | | [address] [address] | | | A BLUE | x | | | [place], [place] | | | CARD | | | | [address] | + +--------+ +------+-------+ + + +--------+ +--------+ + + | Guarantor Name | Accoun | Relation to | Date | Phone | Billing Address | | | t Type | Patient | of | | | | | | | | | | + +--------+ +--------+ + + | ASHU BENAVIDEZ | Person | Self [birth year] | Home: | [address] | | | al/Fam | | [phone] | [phone] [address] [place], | | | krishan | | | [phone] | [place] [address] | + +--------+ +--------+ + +
--- OUTSIDE RECORDS SUMMARY | ~2017-11-10 | XMS | Encounter Summary ---
Demographics + + + | Address | [address] | | | [address] | | | [place] [address] | + + + | Home Phone | | + + + | Preferred Language | Unknown | + + + | Marital Status | Single | + + + | Voodoo Affiliation | 1041 | + + + | Race | Unknown | + + + | Ethnic Group | Unknown | + + + Author + + + | Author | [facility] [employer] [facility] | + + + | Organization | [facility] | + + + | Address | Unknown | + + + | Phone | Unavailable | + + + Support + + + + + | Name | Relationship | Address | Phone | + + + + + | Precious La | ECON | [place] | | | | | [address] | | + + + + + Care Team Providers + +------+ + | Care Washer Operator Name | Role | Phone | + +------+ + PCP | Unavailable | + +------+ + Reason for Visit + + + | Reason | Comments | + + + | Follow-up | Lumbar pain | + + + Consult and Treat [...] [address] | | | | | | [phone] | [address] | | | | | | Fax: | [address] | | | | | | [phone] | [place], [place] | | | | | | | [address] Phone: | | | | | | | [phone] | | | | | | | Fax: | | | | | | | [phone] | + +--------+ + + + + Encounter Details +--------+---------+ + + + | Date | Type | Department | Care Team | Description | +--------+---------+ + + + | 10/16/ | Office | [facility] | Cecelia Perez | Spinal stenosis of | | 2018 | Visit | [facility] | [address] | lumbar region with | | | | [address] | [place] [address] | neurogenic | | | | [place], [place] | [place] [address] | claudication; DDD | | | | [phone] | [phone] | (degenerative disc | | | | [phone] | | disease), lumbar; | | | | | | Pain of lumbar | | | | | | spine; Pain of | | | | | | cervical spine; | | | | | | Cervical | | | | | | radiculopathy | +--------+---------+ + + + Social History [...] AM PDT | + + + + in this encounter Instructions Patient Instructions - Cecelia Perez ARNP - 10/16/2017 11:00 AM PDT1. Take medicat ions as prescribed 2. Call for any changes to your symptoms 3. There will be no early refills provided on the medications provided to you today 4. Continue to have an active lifestyle, be reminded of your proper body mechanics and res trictions to avoid any exacerbation of symptoms. 5. Ice/heat therapy as indicated 6. INCREASE LYRICA 75 CAPS 4 CAPS AT BEDTIME AND 2 CAPS IN THE MORNING 7. ALEVE 2 TABLETS TWICE DAILY in this encounter Progress Notes Cecelia Perez ARNP - 10/16/2017 11:00 AM PDTFormatting of this note may be differen t [...] pain symptoms since her last clinic visit without any specific incident contributing to her increased symptoms. Currently reporting a baseline pain level of 8 9/10 on pain scale; describing her pain as a deep, sharp, shootin g, stabbing sensation at the lumbar region with aching, burning, throbbing sensation to the bilateral lower extremities without specific dermatomal pattern; aggravated with lifting, ch anging position, twisting, pushing, lying down; and improved with ice, heat, rest, standing, walking, use of opioid medicine down to 5 6/10 on pain scale. Patient denies any bladder or bowel dysfunction associated with her symptoms. Of note, patient is also is currently hot flashes. [place] [facility] prescription monitoring website reviewed showing no anomalies t o prescribed medications. Review of Systems Constitutional: Positive for chills. Negative for fatigue and fever. HENT: Negative for congestion, dental problem, sinus pain, sinus pressure, tinnitus and tro uble swallowing. Eyes: Negative for photophobia and visual disturbance. Respiratory: Negative for cough, chest tightness, shortness of breath and wheezing. Cardiovascular: Negative for chest pain, palpitations and leg swelling. Gastrointestinal: Negative for abdominal pain, constipation, diarrhea, nausea and vomiting. Endocrine: Negative for cold intolerance and heat intolerance. Genitourinary: Negative for difficulty urinating, dysuria and pelvic pain. Musculoskeletal: Positive for arthralgias, back pain and myalgias. Negative for joint swell ing and neck pain. Skin: Negative for rash. Neurological: Negative for dizziness, weakness, light-headedness, numbness and headaches. Psychiatric/Behavioral: Positive for sleep disturbance. Negative for agitation and behavior al problems. The patient is not nervous/anxious. Social History Social History Marital status: Single [...] Pt. states that Dr. Alfonzo Mares at [facility] instructed pt not to have an MRI SECTION HYSTERECTOMY LUMBAR FUSION N/A 08/21/2012 Procedure: LUMBAR - XLIF - FUSION; Surgeon: Eric Marroquin MD; Location: [facility]; Se rvice: Orthopedics; Laterality: N/A; L 4/5 Past [...] cervical spine Current Outpatient Prescriptions: Cane (medical transcription editor), Dispense and provide instruction as needed., Disp: 1 each, Rfl: 0 oxyCODONE (ROXICODONE) 15 MG immediate release tablet, Take 1 tablet by mouth every 6 (six) hours as needed for Pain., Disp: 120 tablet, Rfl: 0 [START ON 11/13/2017] oxyCODONE (ROXICODONE) 15 MG immediate release tablet, Take 1 tab let by mouth every 6 (six) hours as needed for Pain., Disp: 120 tablet, Rfl: 0 pregabalin (LYRICA) 75 MG capsule, Take 1 capsule q.AM, and then 3 capsules at bedtime ., Disp: 120 capsule, Rfl: 5 No current facility-administered medications for this visit. Allergies Allergen Reactions Inderal [Propranolol Hcl] Hives Iodinated Diagnostic Agents Hives Contrast dye Medrol [Methylprednisolone] Shortness of Breath Sulfamethoxazole-Trimethoprim Other (See Comments) Augmentin [Amoxicillin-Pot Clavulanate] Diarrhea Codeine Nausea and Vomiting Objective: BP 136/80 (BP Location: Left upper arm, Patient Position: Sitting) | Pulse 70 | Resp 18 | Ht 1.626 m (5' 4") | Wt 60.8 kg (134 lb) | SpO2 98% | BMI 23.00 kg/m Physical Exam General: [...] Motor: 5/5 bilateral lower extremities; 5-/5 right procurement assistant, tricep; 5/5 to the rest of the bi lateral upper extremities; negative Phalen and Tinel sign bilaterally Sensory: Intact all dermatomes to the bilateral lower extremities Assessment and Plan: 1. Spinal stenosis of lumbar region with neurogenic claudication 2. DDD (degenerative disc disease), lumbar 3. Pain of lumbar spine 4. Pain of cervical spine 5. Cervical radiculopathy Medications Placed This Encounter Medications oxyCODONE (ROXICODONE) 15 MG immediate release tablet Sig: Take 1 tablet by mouth every 6 (six) hours as needed for Pain. Dispense: 120 tablet Refill: 0 oxyCODONE (ROXICODONE) 15 MG immediate release tablet Sig: Take 1 tablet by mouth every 6 (six) hours as needed for Pain. Dispense: 120 tablet Refill: 0 TO BE FILLED NO EARLIER THAN NOVEMBER 13, 2017 ketorolac (TORADOL) injection 60 mg Humera Benavidez's current medication regimen has been moderately sufficient in keeping sergio ent's symptoms down to a more manageable level. Patient is provided a refill of her Oxycodone 15 mg every 6 hours as needed for pain. Two prescriptions of this medication were provided. First prescription may be filled today; sec ond prescription to be filled no earlier than November 13, 2017. Proper administration of the medication as well as potential side effects have been discussed. Patient has been instructed to increase her Lyrica 75 mg to 4 caps QHS and 2 caps QAM. Als o adding Aleve 220 mg 2 tablets twice daily with food to help with her symptoms. Per patient's verbal consent, patient was provided Toradol 60 mg IM of which patient lauren ated the administration of the medication well and no adverse reaction noted 20 minutes post injection. Patient has been advised to follow up with her PCP regarding her hot flashes issues, as wel l as her insomnia. Patient is encouraged to continue with her [...] LASHAY Simmons has created this entry using [employer] Voice Recognition software an [employer]. The entry has been reviewed and there [...] [address] | | | | | | [place] [address] | | | | | | [phone] | | | | | | | | +--------+---------+ + + + as of this encounter Visit Diagnoses + + | Diagnosis | + + | Spinal stenosis of lumbar region with neurogenic claudication | + + | Spinal stenosis, lumbar [...] neuritis or radiculitis nos | + + Administered Medications + +--------+ +-------+------+ + | Medication Order | MAR | Action | Dose | Rate | Site | | | Action | Date | | | | + +--------+ +-------+------+ + | ketorolac (TORADOL) injection | Given | | 60 mg | | Left | | 60 mg 60 mg, Intramuscular, | | 8 12:04 | | | Ventrogl | | Once, [facility] 10/16/17 at 1200, For 1 | | PDT | | | uteal | | dose | | | | | | + +--------+ +-------+------+ + +---+---+ | | | +---+---+ in this encounter
--- OUTSIDE RECORDS SUMMARY | ~2017-11-10 | XMS | Encounter Summary ---
Demographics + + + | Address | [address] | | | [address] | | | [place] [address] | + + + | Home Phone | | + + + | Preferred Language | Unknown | + + + | Marital Status | Single | + + + | Pentecostal Affiliation | 1041 | + + + | Race | Unknown | + + + | Ethnic Group | Unknown | + + + Author + + + | Author | [facility] | + + + | Organization | [facility] [facility] | + + + | Address | Unknown | + + + | Phone | Unavailable | + + + Support + + + + + | Name | Relationship | Address | Phone | + + + + + | Precious aL | ECON | [place] | | | | | [address] | | + + + + + Care Team Providers + +------+ + | Care Cardroom Drawing Runner Name | Role | Phone | + +------+ + PCP | Unavailable | + +------+ + Encounter Details +--------+ + + + + | Date | Type | Department | Care Team | Description | +--------+ + + + + | 09/18/ | Telephone | [facility] | Kristen Vega MA | | | 2018 | | [facility] [place] | | | | | | [address] | | | | | | [place] | | | | | | [address] | | | | | | [phone] | | | +--------+ + + + [...] | | | | | [place] [address] | | | | | | [phone] | | | | | | | | +--------+---------+ + + + as of this encounter Visit Diagnoses Not on filein this encounter"
--- OUTSIDE RECORDS SUMMARY | ~2017-11-10 | XMS | Encounter Summary ---
Demographics + + + | Address | [address] | | | [address] | | | [place] [address] | + + + | Home Phone | | + + + | Preferred Language | Unknown | + + + | Marital Status | Single | + + + | Denominational Affiliation | 1041 | + + + | Race | Unknown | + + + | Ethnic Group | Unknown | + + + Author + + + | Author | [facility] | + + + | Organization | [facility] | + + + | Address | Unknown | + + + | Phone | Unavailable | + + + Support + + + + + | Name | Relationship | Address | Phone | + + + + + | Precious La | ECON | [place] | | | | | [address] | | + + + + + Care Team Providers + +------+ + | Care Associate Professor Of Education Name | Role | Phone | + +------+ + PCP | Unavailable | + +------+ + Encounter Details +--------+ + + + + | Date | Type | Department | Care Team | Description | +--------+ + + + + | 09/05/ | Telephone | [facility] | Modesta Rodriguez | | | 2017 | | Information | | | | | | Management [address] | | | | | | [address] | | | | | | [place] [address] | | | | | | [phone] | | | +--------+ + + + [...] [address] | | | | | | [facility] [place] [address] | | | | | | [phone] | | | | | | | | +--------+---------+ + + + as of this encounter Visit Diagnoses Not on filein this encounter"
--- OUTSIDE RECORDS SUMMARY | ~2017-11-10 | XMS | Encounter Summary ---
Demographics + + + | Address | [address] | | | [address] | | | [place] [address] | + + + | Home Phone | | + + + | Preferred Language | Unknown | + + + | Marital Status | Single | + + + | Restorationist Affiliation | 1041 | + + + | Race | Unknown | + + + | Ethnic Group | Unknown | + + + Author + + + | Author | [facility] | + + + | Organization | [facility] | + + + | Address | Unknown | + + + | Phone | Unavailable | + + + Support + + + + + | Name | Relationship | Address | Phone | + + + + + | Precious La | ECON | [place] | | | | | [address] | | + + + + + Care Team Providers + +------+ + | Care High School Social Studies Tutor Name | Role | Phone | + +------+ + PCP | Unavailable | + +------+ + Encounter Details +--------+ + + + + | Date | Type | Department | Care Team | Description | +--------+ + + + + | 09/05/ | Telephone | [facility] | Modesta Rodriguez | | | 2017 | | Information | | | | | | Management [address] | | | | | | [address] | | | | | | [place] [address] | | | | | | [phone] | | | +--------+ + + + [...] [address] | | | | | | [facility] [place] [address] | | | | | | [phone] | | | | | | | | +--------+---------+ + + + as of this encounter Visit Diagnoses Not on filein this encounter"
--- OUTSIDE RECORDS SUMMARY | ~2017-11-10 | XMS | Encounter Summary ---
Demographics + + + | Address | [address] | | | [address] | | | [place] [address] | + + + | Home Phone | | + + + | Preferred Language | Unknown | + + + | Marital Status | Single | + + + | Jain Affiliation | 1041 | + + + | Race | Unknown | + + + | Ethnic Group | Unknown | + + + Author + + + | Author | [facility] | + + + | Organization | [facility] | + + + | Address | Unknown | + + + | Phone | Unavailable | + + + Support + + + + + | Name | Relationship | Address | Phone | + + + + + | Precious La | ECON | [place] | | | | | [address] | | + + + + + Care Team Providers + +------+ + | Care Railway Track Worker Name | Role | Phone | + +------+ + PCP | Unavailable | + +------+ + Encounter Details +--------+ + + + + | Date | Type | Department | Care Team | Description | +--------+ + + + + | 08/21/ | Telephone | Juan | Celina Lang, | | | 2017 | | [facility] [place] | CARBON PAPER COATING SUPERVISOR | | | | | [address] | | | | | | [place] | | | | | | [address] | | | | | | [phone] | | | +--------+ + + + [...] | | | | | [place] [address] | | | | | | [phone] | | | | | | | | +--------+---------+ + + + as of this encounter Visit Diagnoses Not on filein this encounter"
--- OUTSIDE RECORDS SUMMARY | ~2017-11-10 | XMS | Encounter Summary ---
Demographics + + + | Address | [address] | | | [address] | | | [place] [address] | + + + | Home Phone | | + + + | Preferred Language | Unknown | + + + | Marital Status | Single | + + + | Advent Affiliation | 1041 | + + + | Race | Unknown | + + + | Ethnic Group | Unknown | + + + Author + + + | Author | [facility] | + + + | Organization | [facility] | + + + | Address | Unknown | + + + | Phone | Unavailable | + + + Support + + + + + | Name | Relationship | Address | Phone | + + + + + | Precious La | ECON | [place] | | | | | [address] | | + + + + + Care Team Providers + +------+ + | Care Animal Nutrition Consultant Name | Role | Phone | + +------+ + PCP | Unavailable | + +------+ + Encounter Details +--------+ + + + + | Date | Type | Department | Care Team | Description | +--------+ + + + + | 09/19/ | Telephone | Juan | Kristen Vega MA | | | 2018 | | [facility] [place] | | | | | | [address] | | | | | | [place] | | | | | | [address] | | | | | | [phone] | | | +--------+ + + + [...] | | | | | [place] [address] | | | | | | [phone] | | | | | | | | +--------+---------+ + + + as of this encounter Visit Diagnoses Not on filein this encounter"
--- OUTSIDE RECORDS SUMMARY | ~2017-11-10 | XMS | Encounter Summary ---
Demographics + + + | Address | [address] | | | [address] | | | [place] [address] | + + + | Home Phone | | + + + | Preferred Language | Unknown | + + + | Marital Status | Single | + + + | Adventist Affiliation | 1041 | + + + | Race | Unknown | + + + | Ethnic Group | Unknown | + + + Author + + + | Author | [facility] | + + + | Organization | [facility] | + + + | Address | Unknown | + + + | Phone | Unavailable | + + + Support + + + + + | Name | Relationship | Address | Phone | + + + + + | Precious La | ECON | [place] | | | | | [address] | | + + + + + Care Team Providers + +------+ + | Care Balloon Pilot Name | Role | Phone | + +------+ + PCP | Unavailable | + +------+ + Encounter Details +--------+ + + + + | Date | Type | Department | Care Team | Description | +--------+ + + + + | 09/29/ | Telephone | Juan | Celina Lang, | | | 2018 | | Neuro[facility] [place] | EXCELSIOR PICKER | | | | | [address] | | | | | | [place] | | | | | | [address] | | | | | | [phone] | | | +--------+ + + + [...] 12/10/ | Office | Orthopedic Surgery | Ceceila Perez | | | 2017 | Visit | | [address] | | | | | | [place] [address] | | | | | | [place] [address] | | | | | | [phone] | | | | | | | | +--------+---------+ + + + as of this encounter Visit Diagnoses Not on filein this encounter"
--- OUTSIDE RECORDS SUMMARY | ~2017-11-10 | XMS | Encounter Summary ---
Demographics + + + | Address | [address] | | | [address] | | | [place] [address] | + + + | Home Phone | | + + + | Preferred Language | Unknown | + + + | Marital Status | Single | + + + | Moravian Affiliation | 1041 | + + + | Race | Unknown | + + + | Ethnic Group | Unknown | + + + Author + + + | Author | [facility] | + + + | Organization | [facility] | + + + | Address | Unknown | + + + | Phone | Unavailable | + + + Support + + + + + | Name | Relationship | Address | Phone | + + + + + | Precious La | ECON | [place] | | | | | [address] | | + + + + + Care Team Providers + +------+ + | Care Rehabilitation Nurse Name | Role | Phone | + [...] | | 2018 | on Only | [facility] | | RESPONSE FORM) | | | | [address] | | | | | | [place] | | | | | | [address] | | | | | | [phone] | | | +--------+ + + + [...] [address] | | | | | | [place] [address] | | | | | | [phone] | | | | | | | | +--------+---------+ + + + as of this encounter Visit Diagnoses Not on filein this encounter"
--- OUTSIDE RECORDS SUMMARY | ~2017-11-10 | XMS | Clinical Summary ---
Demographics + + + | Address | [address] | | | [address] | | | [place] [address] | + + + | Home Phone | | + + + | Preferred Language | Unknown | + + + | Marital Status | Single | + + + | Sikhism Affiliation | 1041 | + + + | Race | Unknown | + + + | Ethnic Group | Unknown | + + + Author + + + | Author | [facility] | + + + | Organization | [facility] | + + + | Address | Unknown | + + + | Phone | Unavailable | + + + Support + + + + + | Name | Relationship | Address | Phone | + + + + + | Precious La | ECON | [place] | | | | | [address] | | + + + + + Care Team Providers + +------+ + | Care Music Department Chair Name | Role | Phone | + [...] | Lab | | Tomasz Justice, | group home | | 2017 | Requisition | | Produce Sorter | prescription opiate | | | | | | use | +--------+ + + + + | 09/29/ | Telephone | | Celina Lang, | | | 2017 | | | HOT HEAD MACHINE OPERATOR | | +--------+ + + + + [...] | | | 2017 | | | HOT HEAD MACHINE OPERATOR | | +--------+ + + + + [...] [address] | | | | | | [place] [address] | | | | | | [phone] | | | | | | | [...] | | N/A: | | | | [id number] | | [id number] - | | Spine | | | | 0 | | [id number]: Qty: 1 | | Lumbar | | | | /[id number] | | on 08/21/2012 by Lopez, | | | | | | [address] | | MD Eric | | | | | | / | + +------+--------+ +--------+--------+--------+ | Graft Sponge Kit Bone Infuse | | N/A: | | | 01/25/ | [id number] | | Small 28ml - | | Spine | | | 2014 | 0 | | [id number]: Qty: 1 on | | Lumbar | | | | /[id number] | | 08/21/2012 by Eric Marroquin, | | | | | | 00 | | | | | | | | /[id number] | | | | | | | | [id number] | + +------+--------+ +--------+--------+--------+ | Allograft Putty Freeze Dried | | | | | 05/11/ | [id number] | | Demineralized Bone Matrix Dbx | | | | | 2013 | | | 10ml - | | | | | | /[id number] | | [id number]: | | | | | | [id number] | | Qty: 1 on 08/21/2012 | | | | | | [id number] | | | | | | | | 8 / | + +------+--------+ +--------+--------+--------+ | Cage Coroent [id number] Xl | | N/A: | | | | 135255 | | Wide 10 Degree - | | Spine | | | | 0 | | [id number]: Qty: 1 on | | Lumbar | | | | /[id number] | | 08/21/2012 by Eric Marroquin, | | | | | | 50 / | | | | | | | | | + +------+--------+ +--------+--------+--------+ | Screw Shank Can.7.5x45mm | | N/A: | | | | 238863 | | [id number] - [id number]: | | Spine | | | | 5 | | Qty: 4 on 08/21/2012 by Lopez, | | Lumbar | | | | /[id number] | | MD Eric | | | | | | 45 / | + +------+--------+ +--------+--------+--------+ | Screw Locking For 6.25mm David | | N/A: | | | | [id number] | | [id number] - [id number]: | | Spine | | | | 1 | | Qty: 4 on 08/21/2012 by Lopez, | | Lumbar | | | | /[id number] | | MD Eric | | | | | | 01 / | + +------+--------+ +--------+--------+--------+ | Screw Tulip For 6.25mm David | | N/A: | | | | [id number] | | [id number] - [id number]: | | Spine | | | | 2 | | Qty: 4 on 08/21/2012 by Lopez | | Lumbar | | | | /[id number] | | MD Eric | | | | | | 02 / | + +------+--------+ +--------+--------+--------+ | David Spherx Dual Ball Ti Dbr | | N/A: | | | | [id number] | | Ii 225mm - [id number]: | | Spine | | | | 5 | | Qty: 2 on 08/21/2012 by | | Lumbar | | | | /[id number] | | Eric Marroquin MD | | [...] PATIENT MANAGEMENT | | | | DECISIONS. [facility] IS AUTHORIZED UNDERCLINICAL | | | | [...] PATIENT | | | | MANAGEMENT DECISIONS. [facility] IS AUTHORIZED | | | | UNDERCLINICAL [...] + + + | Urine, Unspecified | [facility] [address] [place] [address] | | Source | | + + [...] | xxxxxxxxxx | | | [address] | | | RE | | | | [place] [address] | | | IP-OP | | | | | + +--------+ +------+-------+ + | PREMERA | PREMER | xxxxxxxxxxx | | | [address] [address] | | | A BLUE | x | | | [place], [place] | | | CARD | | | | [address] | + +--------+ +------+-------+ + + +--------+ +--------+ + + | Guarantor Name | Accoun | Relation to | Date | Phone | Billing Address | | | t Type | Patient | of | | | | | | | | | | + +--------+ +--------+ + + | ASHU BENAVIDEZ | Person | Self [birth year] | Home: | [address] | | | al/Fam | | [phone] | [phone] [address] [place], | | | krishan | | | [phone] | [place] [address] | + +--------+ +--------+ + +
--- OUTSIDE RECORDS SUMMARY | ~2017-11-10 | XMS | Encounter Summary ---
Demographics + + + | Address | [address] | | | [address] | | | [place] [address] | + + + | Home Phone | | + + + | Preferred Language | Unknown | + + + | Marital Status | Single | + + + | Rastafari Affiliation | 1041 | + + + | Race | Unknown | + + + | Ethnic Group | Unknown | + + + Author + + + | Author | [facility] | + + + | Organization | [facility] | + + + | Address | Unknown | + + + | Phone | Unavailable | + + + Support + + + + + | Name | Relationship | Address | Phone | + + + + + | Precious La | ECON | [place] | | | | | [address] | | + + + + + Care Team Providers + +------+ + | Care Detail Sergeant Name | Role | Phone | + [...] Marte | | | | | | [phone] | [address] | | | | | | Fax: | [address] | | | | | | [phone] | [place], [place] | | | | | | | [address] Phone: | | | | | | | [phone] | | | | | | | Fax: | | | | | | | [phone] | + +--------+ + + + + Encounter Details +--------+---------+ + + + | Date | Type | Department | Care Team | Description | +--------+---------+ + + + | 10/16/ | Office | [facility] | Cecelia Perez | Spinal stenosis of | | 2018 | Visit | [facility] | [address] | lumbar region with | | | | [address] | [place] [address] | neurogenic | | | | [place], [place] | [place] [address] | claudication; DDD | | | | [address] | [phone] | (degenerative disc | | | | [phone] | | disease), lumbar; | | | [...] patient is also is currently hot flashes. [place] and [facility] prescription monitoring website reviewed showing no [...] Pt. states that Dr. Alfonzo Mares at [facility] instructed pt not to have an MRI SECTION HYSTERECTOMY LUMBAR FUSION N/A 08/21/2012 Procedure: LUMBAR - XLIF - FUSION; Surgeon: Eric Marroquin MD; Location: [facility] MAIN OR; Se rvice: Orthopedics; Laterality: N/A; [...] cervical spine Current Outpatient Prescriptions: Cane (medical pathologist), Dispense and provide instruction as needed., Disp: [...] Motor: 5/5 bilateral lower extremities; 5-/5 right entry operator, tricep; 5/5 to the rest of the [...] LASHAY Simmons has created this entry using Dympol Voice Recognition software an Vastari. The entry has been reviewed and there [...] [address] | | | | | | [place] [address] | | | | | | [phone] | | | | | | | [...] | | | Ventrogl | | Once, [facility] 10/16/17 at 1200, For 1 | | PDT | | | uteal | | dose | | | | | | + +--------+ +-------+------+ + +---+---+ | | | +---+---+ in this encounter
[~2017-11-10 14:03] MED LIST: AMITRIPTYLINE H25 MG PO; ATIVAN1 MG PO; CLINDAMYCIN HC150 MG PO; COLACE100 MG PO; DIAZEPAM5 MG PO; DILAUDID4 MG PO; EXCEDRIN MIGRA1 EACH PO; FLEET ENEMA133 ML RC; IBUPROFEN800 MG PO; LYRICA75 MG PO; MAGNESIUM CITR296 ML PO; NORCO 5-325 TA1 EACH PO; OXYCODONE HCL10 MG PO; PERCOCET 10-321 EACH PO; REGLAN10 MG PO; SUDAFED 12-HOU120 MG PO; VALIUM5 MG PO
[2017-11-10] MEDS ORDERED: CYMBALTA30 MG (14:25)
--- NOTE | 2017-11-11 17:14 | EKG ---
[facility] [address] [facility] [place], [place] [address] Signed Normal sinus rhythm Normal ECG No previous ECGs available Confirmed by ANNABEL QUIROS MD ([id number]) on 11/11/2017 5:13:49 PM Electronically Signed By: ANNABEL QUIROS MD 11/11/17 1714 PATIENT NAME: ASHU SHAH Electrocardiogram DATE OF : 53 PHYSICIAN: ANNABEL QUIROS MD REPORT #: [id number] REPORT IS CONFIDENTIAL AND NOT TO BE RELEASED WITHOUT AUTHORIZATION
== END 2017-11-10 16:53 | disposition home or self-care (01) ==
LOC: ED 14:03
DX: I10 Essential (primary) hypertension (principal); Z87.891 Personal history of nicotine dependence; Z88.8 Allergy status to other drugs, medicaments and biological substances; Z88.1 Allergy status to other antibiotic agents; Z88.5 Allergy status to narcotic agent; Z88.0 Allergy status to penicillin; Z79.899 Other long term (current) drug therapy
CPT/HCPCS: 71045; 80053; 84436; 84443; 84479; 85025; 93005; 93010; 96374; 99284; J2060

== ENCOUNTER 2018-02-08 13:30 | Emergency (ER) | payer MEDICARE, BC ==
[~2018-02-08] VITALS: Ht 162.6 cm; Wt 68.0 kg
[~2018-02-08 13:30] MED LIST changes: +CYMBALTA30 MG
[2018-02-08] MEDS ORDERED: METOPROLOL TART50 MG PO (13:51)
[2018-02-08] MEDS ORDERED: AMLODIPINE BES2.5 MG PO (13:52)
[2018-02-08] MEDS ORDERED: ESCITALOPRAM OX10 MG PO (13:53)
[2018-02-08] MEDS ORDERED: OXYCODONE HCL15 MG PO (13:53)
--- NOTE | 2018-02-09 08:06 | EKG ---
[facility] [address] [facility] [place], [place] [address] Signed Marked sinus bradycardia Abnormal ECG When compared with ECG of 10-NOV-2017 14:21, No significant change was found Confirmed by OTONIEL ROLON MD ([id number]) on 02/09/2018 8:06:12 AM Electronically Signed By: OTONIEL ROLON MD 02/09/18 0806 PATIENT NAME: ASHU SHAH Electrocardiogram DATE OF : 53 PHYSICIAN: OTONIEL ROLON MD REPORT #: [id number] REPORT IS CONFIDENTIAL AND NOT TO BE RELEASED WITHOUT AUTHORIZATION
== END 2018-02-08 17:15 | disposition home or self-care (01) ==
LOC: ED 13:30
DX: R00.1 Bradycardia, unspecified (principal); T46.1X5A Adverse effect of calcium-channel blockers, initial encounter; G43.909 Migraine, unspecified, not intractable, without status migrainosus; F41.9 Anxiety disorder, unspecified; I10 Essential (primary) hypertension; Z88.8 Allergy status to other drugs, medicaments and biological substances; Z88.1 Allergy status to other antibiotic agents; Z88.5 Allergy status to narcotic agent; Z88.2 Allergy status to sulfonamides; Z79.899 Other long term (current) drug therapy; Z79.891 Long term (current) use of opiate analgesic
CPT/HCPCS: 80053; 81001; 85025; 93005; 93010; 99283

== ENCOUNTER 2018-09-20 14:21 | Emergency (ER) | payer MEDICARE, BC ==
[~2018-09-20] VITALS: Ht 162.6 cm; Wt 68.0 kg
[~2018-09-20 14:21] MED LIST changes: +AMLODIPINE BES2.5 MG PO; +ESCITALOPRAM OX10 MG PO; +METOPROLOL TART50 MG PO; +OXYCODONE HCL15 MG PO
--- OUTSIDE RECORDS SUMMARY | 2018-09-20 14:24 | XMS ---
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 Saman has no Care Guidelines for this patient. Pradeep VISIT COUNT (12 MO.) [address] [place] [address] [place] TOTAL 5 NOTE: Visits indicate total known visits. 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 - Allergy status to other drugs, medicaments and biological substances status - Allergy status to narcotic agent status - Anxiety disorder, unspecified - Other malaise - Adverse effect of calcium-channel blockers, initial encounter - Essential (primary) hypertension 11/15/2017 14:37 [facility] [place] TYPE: Emergency COMPLAINT: - CHEST PAIN 11/14/2017 12:43 [facility] [place] TYPE: Emergency COMPLAINT: - ALLERGIC REACTION 11/10/2017 14:04 [facility] [place] TYPE: Emergency COMPLAINT: - BP PROBLEM DIAGNOSES: - 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
--- NOTE | 2018-09-22 19:57 | EKG ---
[facility] [address] [place] [address] Signed Normal sinus rhythm Nonspecific ST abnormality Abnormal ECG When compared with ECG of 08-FEB-2018 14:04, Vent. rate has increased BY 42 BPM Confirmed by ANNABEL QUIROS MD ([id number]) on 09/22/2018 7:57:42 PM Electronically Signed By: ANNABEL QUIROS MD 09/22/181956 PATIENT NAME: PABLOASHU Electrocardiogram DATE OF : 53 PHYSICIAN: ANNABEL QUIROS MD REPORT #: [id number] REPORT IS CONFIDENTIAL AND NOT TO BE RELEASED WITHOUT AUTHORIZATION
== END 2018-09-20 18:41 | disposition home or self-care (01) ==
LOC: ED 14:21
DX: R07.89 Other chest pain (principal); G43.909 Migraine, unspecified, not intractable, without status migrainosus; F41.9 Anxiety disorder, unspecified; I10 Essential (primary) hypertension; Z88.8 Allergy status to other drugs, medicaments and biological substances; Z88.5 Allergy status to narcotic agent; Z88.1 Allergy status to other antibiotic agents; Z88.2 Allergy status to sulfonamides; Z79.899 Other long term (current) drug therapy; Z79.891 Long term (current) use of opiate analgesic
CPT/HCPCS: 36415; 70450; 71045; 80053; 84484; 85025; 93005; 93010; 99285-25

== ENCOUNTER 2019-03-16 16:20 | Emergency (ER) | payer MEDICARE, BC ==
[~2019-03-16] VITALS: Ht 162.6 cm; Wt 68.0 kg
--- OUTSIDE RECORDS SUMMARY | 2019-03-16 16:22 | XMS ---
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 EKristan VISIT COUNT (12 MO.) 2 [place] TOTAL 2 NOTE: Visits indicate total known visits. 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
[2019-03-16] MEDS ORDERED: LISINOPRIL5 MG PO (16:32)
[2019-03-16] MEDS ORDERED: LIPITOR20 MG PO (16:32)
--- NOTE | 2019-03-17 21:43 | EKG ---
[facility] [address] [facility] [place], [place] [address] Signed Normal sinus rhythm Nonspecific ST and T wave abnormality Abnormal ECG When compared with ECG of 20-SEP-2018 14:27, Nonspecific T wave abnormality now evident in Anterior leads Confirmed by NARINDER PHILIP DO ([id number]) on 03/17/2019 9:42:45 PM Electronically Signed By: NARINDER PHILIP DO 03/17/19 2143 PATIENT NAME: ASHU SHAH Electrocardiogram DATE OF : 53 PHYSICIAN: NARINDER PHILIP DO REPORT #: [id number] REPORT IS CONFIDENTIAL AND NOT TO BE RELEASED WITHOUT AUTHORIZATION
== END 2019-03-16 18:10 | disposition home or self-care (01) ==
LOC: ED 16:20
DX: R07.9 Chest pain, unspecified (principal); I10 Essential (primary) hypertension; Z88.0 Allergy status to penicillin; Z88.1 Allergy status to other antibiotic agents; Z88.5 Allergy status to narcotic agent; Z88.8 Allergy status to other drugs, medicaments and biological substances; Z88.2 Allergy status to sulfonamides; Z79.899 Other long term (current) drug therapy
CPT/HCPCS: 71045; 80053; 83880; 84484; 85025; 93005; 93010; 99285-25

== ENCOUNTER 2019-04-02 16:57 | Emergency (ER) | payer MEDICARE, BC ==
[~2019-04-02] VITALS: Ht 162.6 cm; Wt 68.0 kg
[~2019-04-02 16:57] MED LIST changes: +LIPITOR20 MG PO; +LISINOPRIL5 MG PO
--- OUTSIDE RECORDS SUMMARY | 2019-04-02 17:00 | XMS ---
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 Pradeep VISIT COUNT (12 MO.) 3 [facility] TOTAL 3 NOTE: Visits indicate total known visits. ED/UCC VISIT TRACKING (12 MO.) 04/02/2019 16:58 [facility] [place] TYPE: Emergency COMPLAINT: - HEADACHE, NAUSEA 03/16/2019 16:20 [facility] [place] TYPE: Emergency COMPLAINT: - CHEST PAIN DIAGNOSES: - Other halfway (current) drug therapy - Allergy status to sulfonamides status - Allergy status to other antibiotic agents status - Allergy status to penicillin - Chest pain, unspecified - Allergy status to other drugs, medicaments and biological substances status - Allergy status to narcotic agent status - Essential (primary) hypertension 09/20/2018 14:22 [facility] [place] TYPE: Emergency COMPLAINT: - CHEST PAIN/HEADACHE DIAGNOSES: - 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
[2019-04-02] MEDS ORDERED: DOXYCYCLINE HY100 MG PO (20:23)
== END 2019-04-02 20:50 | disposition home or self-care (01) ==
LOC: ED 16:57
DX: J01.90 Acute sinusitis, unspecified (principal); I10 Essential (primary) hypertension; Z88.0 Allergy status to penicillin; Z88.1 Allergy status to other antibiotic agents; Z88.2 Allergy status to sulfonamides; Z88.5 Allergy status to narcotic agent; Z88.8 Allergy status to other drugs, medicaments and biological substances; Z79.899 Other long term (current) drug therapy
CPT/HCPCS: 96361; 96374; 96375; 99283-25; J1200; J1885; J2765; J7030